=== PATIENT | female | born 1970 | race American Indian/Alaskan Native ===

== ENCOUNTER 2017-08-14 17:18 | Emergency (ER) | payer MEDICAID, OTHER ==
--- NOTE | 2017-08-14 18:05 | EDM.PDOC ---
ED HPI GENERAL MEDICAL PROBLEM - General Stated Complaint: CHEST PAINS,CAME BY AMBULANCE Time Seen by Provider: 08/14/17 17:50 Source of Information: Reports: Patient History Limitations: Reports: No Limitations - History of Present Illness INITIAL COMMENTS - FREE TEXT/NARRATIVE: This 46 yo female patient was sent to the ED by the [facility] due to chest pain and shortness of breath relieved by nitroglycerin. The patient reports she was sitting at her desk (while at work) today when she started to notice some shortness of breath and tightness in her chest. The patient reports her symptoms went from her anterior chest to her posterior chest and down her spine to her left leg. The patient reports she was seen at the [facility] and initially given a nebulizer treatment (symptom relief for about 5 minutes), but the symptoms returned again. The patient reports she was then given an oral nitroglycerin which immediately relieved her symptoms and they have not returned. The patient reports a history of similar episodes in the past. The patient previously saw a presiding steward that told her that she was not having heart problems, but gave her a script for Nitro. 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 Treatments, Nitroglycerin - Related Data Allergies Allergy/AdvReac Type Severity Reaction Status Date / Time No Known Allergies Allergy Verified 02/01/16 22:37 Home Meds: Home Meds Acetaminophen [Tylenol] 650 mg PO Q6HR PRN 08/29/13 [History] Aspirin [Keren Chewable] 81 mg PO DAILY 08/29/13 [History] Losartan [Cozaar] 100 mg PO DAILY 08/29/13 [History] atorvaSTATin [Lipitor] 20 mg PO DAILY 04/27/14 [History] Simethicone 80 mg PO Q6H PRN 11/25/14 [History] metFORMIN [Glucophage] 1,000 mg PO BIDMEALS 11/25/14 [History] Hydrochlorothiazide 25 mg PO DAILY 12/18/14 [History] glyBURIDE [Micronase] 2.5 mg PO DAILY 02/01/16 [History] Past Medical History Cardiovascular History: Reports: High Cholesterol, Hypertension Endocrine/Metabolic History: Reports: Diabetes, Type II - Past Surgical History Other HEENT Surgeries/Procedures: wears glasses Other GI Surgeries/Procedures: last BM today 1100 Social & Family History - Family History Family Medical History: Noncontributory - Tobacco Use Smoking Status *Q: Current Every Day Smoker Years of Tobacco use: 25 Packs/Tins Daily: 0.5 Used Tobacco, but Quit: No Second Hand Smoke Exposure: Yes - Alcohol Use Days Per Week of Alcohol Use: 0 - Recreational Drug Use Recreational Drug Use: No ED ROS GENERAL - Review of Systems Review Of Systems: ROS reveals no pertinent complaints other than HPI. ED EXAM, GENERAL - Physical Exam Exam: See Below Exam Limited By: No Limitations General Appearance: Alert, WD/WN, Mild Distress, Obese Eye Exam: Bilateral Eye: EOMI, Normal Inspection, PERRL Ears: Normal External Exam, Normal Canal, Hearing Grossly Normal, Normal TMs Nose: Normal Inspection, Normal Mucosa, No Blood Throat/Mouth: Normal Inspection, Normal Lips, Normal Teeth, Normal Gums, Normal Oropharynx, Normal Voice, No Airway Compromise Head: Atraumatic, Normocephalic Neck: Normal Inspection, Supple, Non-Tender, Full Range of Motion Respiratory/Chest: No Respiratory Distress, Lungs Clear, Normal Breath Sounds, No Accessory Muscle Use, Chest Non-Tender Cardiovascular: Normal Peripheral Pulses, Regular Rate, Rhythm, No Edema, No Gallop, No JVD, No Murmur, No Rub GI/Abdominal: Normal Bowel Sounds, Soft, Non-Tender, No Organomegaly, No Distention, No Abnormal Bruit, No Mass (Female) Exam: Deferred Rectal (Female) Exam: Deferred Back Exam: Normal Inspection, Full Range of Motion, NT Extremities: Normal Inspection, Normal Range of Motion, Non-Tender, Normal Capillary Refill, No Pedal Edema Neurological: Alert, Oriented, CN II-XII Intact, Normal Cognition, Normal Gait, Normal Reflexes, No Motor/Sensory Deficits Psychiatric: Normal Affect, Normal Mood Skin Exam: Warm, Dry, Intact, Normal Color, No Rash Lymphatic: No Adenopathy Course - Vital Signs Last Recorded V/S: Last Vital Signs Temp 37.1 C 08/14/17 17:21 Pulse 100 08/14/17 17:21 Resp 20 08/14/17 17:21 BP 131/119 H 08/14/17 17:21 Pulse Ox 99 08/14/17 17:21 - Orders/Labs/Meds Orders: Active Orders 24 hr Category Date Time Status EKG Documentation Completion [RC] URGENT Care 08/14/17 17:28 Active Labs: Laboratory Tests 08/14/17 08/14/17 Range/Units 17:37 17:37 WBC 11.2 H (5.0-10.0) 10^3/uL RBC 4.26 (4.2-5.4) 10^6/uL Hgb 12.8 (12.0-16.0) g/dL Hct 38.0 (37.0-47.0) % MCV 89.2 (80-100) fL MCH 30.0 (27.0-34.0) pg MCHC 33.7 (33.0-35.0) g/dL Plt Count 261 (150-450) 10^3/uL Neut % (Auto) 69.3 (42.2-75.2) % Lymph % (Auto) 21.1 (20.5-50.1) % [place] % (Auto) 6.3 (2-8) % Eos % (Auto) 2.8 (1.0-3.0) % Baso % (Auto) 0.5 (0.0-1.0) % Sodium 137 (135-145) mmol/L Potassium 3.5 L (3.6-5.0) mmol/L Chloride 97 L (101-111) mmol/L Carbon Dioxide 25.0 (21.0-31.0) mmol/L Anion Gap 18.5 BUN 9 (7-18) mg/dL Creatinine 0.6 (0.6-1.3) mg/dL Est Cr Clr Drug Dosing TNP Estimated GFR (MDRD) > 60 BUN/Creatinine Ratio 15.00 Glucose 112 H (74-105) mg/dL Calcium 9.6 (8.4-10.2) mg/dl Total Bilirubin 0.6 (0.2-1.0) mg/dL AST 25 (10-42) IU/L ALT 21 (10-60) IU/L Alkaline Phosphatase 110 (42-121) IU/L Troponin I < 0.02 (0.00-0.02) ng/ml Total Protein 7.9 (6.7-8.2) g/dl Albumin 4.2 (3.2-5.5) g/dl Globulin 3.7 Albumin/Globulin Ratio 1.14 Departure - Departure Time of Disposition: 18:29 Disposition: Home, Self-Care 01 Condition: Good Clinical Impression: Angina at rest Instructions: Angina Pectoris, [id number]-oh-Rwus Forms: ED Department Discharge Care Plan Goals: The patient was advised of the examination, lab and EKG results during the visit. The patient was encouraged to continue to monitor her symptoms. If the patient has any additional symptoms or concerns, the patient should follow-up with her primary care provider or return to the emergency department. - My Orders Last 24 Hours: My Active Orders 08/14/17 17:28 EKG Documentation Completion [RC] URGENT - Assessment/Plan Last 24 Hours: My Active Orders 08/14/17 17:28 EKG Documentation Completion [RC] URGENT
[2017-08-14 18:06] LABS: CHLORIDE,CL 97 mmol/L (101-111); SODIUM,NA 137 mmol/L (135-145)
[2017-08-14 18:26] VITALS: BP 131/119
--- NOTE | 2017-08-16 10:08 | EKG ---
08/14/2017- SENA CALVO M - EKG per my reading shows sinus rhythm at the rate of 100, no acute ST changes. MOD /[id number]
== END 2017-08-14 18:39 | disposition home or self-care (01) ==
LOC: DL.ED 17:18
DX: I20.9 Angina pectoris, unspecified (principal); I10 Essential (primary) hypertension; E78.00 Pure hypercholesterolemia, unspecified; E11.9 Type 2 diabetes mellitus without complications; F17.210 Nicotine dependence, cigarettes, uncomplicated; Z79.82 Long term (current) use of aspirin; Z79.899 Other long term (current) drug therapy; Z79.84 Long term (current) use of oral hypoglycemic drugs
CPT/HCPCS: 36415; 80053; 84484; 85025; 93005; 99285

== ENCOUNTER 2019-02-18 12:49 | Emergency (ER) | payer BC, OTHER ==
[2019-02-18 12:59] VITALS: BP 163/89
[2019-02-18] MEDS ORDERED: Diphtheria,Pertussis(Acell),Tetanus Vaccine 0.5 ML SDV IM ONE (12:59)
[2019-02-18] MEDS ORDERED: Bacitracin Oint 1 GM U/D Packet TOP ONE (12:59)
--- NOTE | 2019-02-18 13:27 | EDM.PDOC ---
Scribed by Leilani Horn 02/18/19 1313 for Dru Rowland PA ED HPI GENERAL MEDICAL PROBLEM - General Chief Complaint: Laceration Stated Complaint: CUT FINGER Time Seen by Provider: 02/18/19 13:00 Source of Information: Reports: Patient, RN, RN Notes Reviewed History Limitations: Reports: No Limitations - History of Present Illness INITIAL COMMENTS - FREE TEXT/NARRATIVE: Patient is a 48-year-old female with laceration to the distal 2nd finger. The patient reports she was cutting potatoes with a mandolin slicer. No acute bleeding. Onset: Today Location: Reports: Upper Extremity, Right Severity: Mild Improves with: Reports: None Worsens with: Reports: None Associated Symptoms: Reports: No Other Symptoms - Related Data Allergies Allergy/AdvReac Type Severity Reaction Status Date / Time No Known Allergies Allergy Verified 02/18/19 12:59 Home Meds: Home Meds Acetaminophen [Tylenol] 650 mg PO Q6HR PRN 08/29/13 [History] Aspirin [Keren Chewable] 81 mg PO DAILY 08/29/13 [History] Losartan [Cozaar] 100 mg PO DAILY 08/29/13 [History] atorvaSTATin [Lipitor] 20 mg PO DAILY 04/27/14 [History] Simethicone 80 mg PO Q6H PRN 11/25/14 [History] metFORMIN [Glucophage] 1,000 mg PO BIDMEALS 11/25/14 [History] hydroCHLOROthiazide [Hydrochlorothiazide] 25 mg PO DAILY 12/18/14 [History] Potassium Chloride 10 meq PO DAILY 04/24/18 [History] Saxagliptin HCl [Onglyza] 5 mg PO DAILY 04/24/18 [History] buPROPion HCl [Wellbutrin Xl] 150 mg PO DAILY 04/24/18 [History] Past Medical History Cardiovascular History: Reports: High Cholesterol, Hypertension Respiratory History: Reports: None Gastrointestinal History: Reports: None Genitourinary History: Reports: None 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 Musculoskeletal History: Reports: None Neurological History: Reports: None Psychiatric History: Reports: Anxiety, Depression Endocrine/Metabolic History: Reports: Diabetes, Type II Hematologic History: Reports: None Immunologic History: Reports: None Oncologic (Cancer) History: Reports: None Dermatologic History: Reports: None - Past Surgical History Other HEENT Surgeries/Procedures: wears glasses Social & Family History - Family History Family Medical History: Noncontributory - Caffeine Use Caffeine Use: Reports: Soda ED ROS GENERAL - Review of Systems Review Of Systems: ROS reveals no pertinent complaints other than HPI. ED EXAM, SKIN/RASH Exam: See Below Exam Limited By: No Limitations General Appearance: Alert, WD/WN, No Apparent Distress Eye Exam: Bilateral Eye: EOMI, Normal Inspection, PERRL Ears: Normal External Exam, Normal Canal, Hearing Grossly Normal, Normal TMs Nose: Normal Inspection, Normal Mucosa, No Blood Throat/Mouth: Normal Inspection, Normal Lips, Normal Teeth, Normal Gums, Normal Oropharynx, Normal Voice, No Airway Compromise Head: Atraumatic, Normocephalic Neck: Normal Inspection, Supple, Non-Tender, Full Range of Motion Respiratory/Chest: No Respiratory Distress, Lungs Clear, Normal Breath Sounds, No Accessory Muscle Use, Chest Non-Tender Cardiovascular: Normal Peripheral Pulses, Regular Rate, Rhythm, No Edema, No Gallop, No JVD, No Murmur, No Rub GI/Abdominal: Normal Bowel Sounds, Soft, Non-Tender, No Organomegaly, No Distention, No Abnormal Bruit, No Mass (Female) Exam: Deferred Rectal (Female) Exam: Deferred Back Exam: Normal Inspection, Full Range of Motion, NT Extremities: Normal Inspection, Normal Range of Motion, Non-Tender, No Pedal Edema, Normal Capillary Refill Neurological: Alert, Oriented, CN II-XII Intact, Normal Cognition, Normal Gait, Normal Reflexes, No Motor/Sensory Deficits Psychiatric: Normal Affect, Normal Mood Skin: Other (small avulsion distal index finger. No bleeding. ) Lymphatic: No Adenopathy Course - Vital Signs Last Recorded V/S: Last Vital Signs Temp 36.8 C 02/18/19 12:57 Pulse 105 H 02/18/19 12:57 Resp 16 02/18/19 12:57 BP 163/89 H 02/18/19 12:57 Pulse Ox 100 02/18/19 12:57 - Orders/Labs/Meds Orders: Active Orders 24 hr Category Date Time Status Vaccines to be Administered [RC] PER UNIT ROUTINE Care 02/18/19 12:59 Active Meds: Medications Discontinued Medications Generic Name Dose Route Start Last Admin Trade Name Freq PRN Reason Stop Dose Admin Bacitracin 1 dose 02/18/19 12:59 02/18/19 13:04 Bacitracin Oint 1 Gm TOP 02/18/19 13:00 1 dose ONETIME ONE Administration Diphtheria/Tetanus/Acell Pertussis 0.5 ml 02/18/19 12:59 02/18/19 13:05 Adacel IM 02/18/19 13:00 0.5 ml .ONCE ONE Administration Departure - Departure Time of Disposition: 13:10 Disposition: Home, Self-Care 01 Condition: Good Clinical Impression: Finger laceration Qualifiers: Encounter type: initial encounter Finger: index finger Damage to nail status: without damage Foreign body presence: with foreign body Laterality: right Qualified Code(s): S61.220A - Laceration with foreign body of right index finger without damage to nail, initial encounter - Discharge Information *PRESCRIPTION DRUG MONITORING PROGRAM REVIEWED*: Not Applicable *COPY OF PRESCRIPTION DRUG MONITORING REPORT IN PATIENT JESUS: Not Applicable Instructions: Laceration Care, Adult, [id number] Referrals: Lili Castillo MD [Primary Care Provider] - Forms: ED Department Discharge Care Plan Goals: The patient was advised of the examination results during the visit. The patient should keep the area clean and dry over the next 24 hours. If the patient has any additional symptoms or concerns, the patient should either return to the emergency department or follow-up with her primary care facility. - My Orders Last 24 Hours: My Active Orders 02/18/19 12:59 Vaccines to be Administered [RC] PER UNIT ROUTINE - Assessment/Plan Last 24 Hours: My Active Orders 02/18/19 12:59 Vaccines to be Administered [RC] PER UNIT ROUTINE I have read and agree with the documentation that has been completed regarding this visit. By signing this record, I attest that the documentation was completed in my physical presence and is an accurate record of the encounter.
== END 2019-02-18 13:16 | disposition home or self-care (01) ==
LOC: DL.ED 12:49
DX: S61.220A Laceration with foreign body of right index finger without damage to nail, initial encounter (principal); E78.00 Pure hypercholesterolemia, unspecified; I10 Essential (primary) hypertension; E11.9 Type 2 diabetes mellitus without complications; F41.9 Anxiety disorder, unspecified; F32.9 Major depressive disorder, single episode, unspecified; Z79.84 Long term (current) use of oral hypoglycemic drugs; Z79.899 Other long term (current) drug therapy; Z79.82 Long term (current) use of aspirin; W26.8XXA Contact with other sharp object(s), not elsewhere classified, initial encounter
CPT/HCPCS: 90471; 90715; 96372; 99282

== ENCOUNTER 2019-12-05 17:34 | Emergency (ER) | payer BC, OTHER ==
[2019-12-05 17:46] VITALS: BP 159/75; PULSE 100
[2019-12-05] MEDS ORDERED: Lidocaine 1% 30 ML SDV INJECT ONE (18:28)
--- NOTE | 2019-12-05 19:09 | EDM.PDOC ---
<AmarjitjadeNatasha - Last Filed: 12/05/19 18:25> ED HPI GENERAL MEDICAL PROBLEM - General Chief Complaint: Upper Extremity Injury/Pain Stated Complaint: BOIL IN LEFT ARMPIT Time Seen by Provider: 12/05/19 18:25 Source of Information: Reports: Patient History Limitations: Reports: No Limitations - History of Present Illness INITIAL COMMENTS - FREE TEXT/NARRATIVE: Patient presents to the ED by private vehicle with concerns of an abscess in her left armpit. The patient states that this has been present for approximately 1 month. The patient can typically run the lesion under warm water and the lesion will drain. She states recently it has felt more tender. She describes 5/10, throbbing pain. She denies recorded fever but does state that she felt ill today. Left Arm Pain Score (Numeric/FACES): 6 - Related Data Allergies Allergy/AdvReac Type Severity Reaction Status Date / Time No Known Allergies Allergy Verified 12/05/19 17:44 Home Meds: Home Meds Acetaminophen [Tylenol] 650 mg PO Q6HR PRN 08/29/13 [History] Aspirin [Keren Chewable] 81 mg PO DAILY 08/29/13 [History] Losartan [Cozaar] 100 mg PO DAILY 08/29/13 [History] metFORMIN [Glucophage] 1,000 mg PO BIDMEALS 11/25/14 [History] hydroCHLOROthiazide [Hydrochlorothiazide] 25 mg PO DAILY 12/18/14 [History] Potassium Chloride 10 meq PO DAILY 04/24/18 [History] buPROPion HCl [Wellbutrin Xl] 300 mg PO DAILY 04/24/18 [History] Pioglitazone HCl 45 mg PO DAILY 05/26/19 [History] Simvastatin [Zocor] 10 mg PO DAILY 05/26/19 [History] Past Medical History HEENT History: Reports: Impaired Vision Cardiovascular History: Reports: High Cholesterol, Hypertension Respiratory History: Reports: None Gastrointestinal History: Reports: None Genitourinary History: Reports: None 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 Musculoskeletal History: Reports: None Neurological History: Reports: None Psychiatric History: Reports: Anxiety, Depression Endocrine/Metabolic History: Reports: Diabetes, Type II, Obesity/BMI 30+ Hematologic History: Reports: None Immunologic History: Reports: None Oncologic (Cancer) History: Reports: None Dermatologic History: Reports: None - Infectious Disease History Infectious Disease History: Reports: Chicken Pox - Past Surgical History Other HEENT Surgeries/Procedures: wears glasses GI Surgical History: Reports: Cholecystectomy Social & Family History - Family History Family Medical History: Noncontributory - Tobacco Use Smoking Status *Q: Current Every Day Smoker Years of Tobacco use: 30 Packs/Tins Daily: 0.5 - Caffeine Use Caffeine Use: Reports: Soda - Alcohol Use Days Per Week of Alcohol Use: 1 Number of Drinks Per Day: 1 Total Drinks Per Week: 1 - Recreational Drug Use Recreational Drug Use: No Review of Systems - Review of Systems Review Of Systems: Comprehensive ROS is negative, except as noted in HPI. ED EXAM, GENERAL - Physical Exam Exam: See Below General Appearance: Alert, No Apparent Distress Head: Atraumatic, Normocephalic Respiratory/Chest: No Respiratory Distress, Lungs Clear, Normal Breath Sounds Cardiovascular: Normal Peripheral Pulses, Regular Rate, Rhythm, No Murmur Skin Exam: Warm, Dry, Wound/Incision (wound to left axilla, erythematous base with approximately 1 cm fluctuant abscess actively draining serous fluid) Lymphatic: No Adenopathy ED TRAUMA EXTREMITY PROCEDURES - I&D Site: left axilla Skin Prep: Providone-Iodine (Betadine) Local Anesthesia: Lidocaine: 1% Plain Local Anesthetic Volume: 5cc Area Incised With: 11 Blade Drainage: Bloody, Small Amount Probed to Break Up Loculations: Yes Packed With: 1 in. Iodoform Sterile Dressinx4(s), Other (feminine pad, adhesive tape) Complications: No Progress/Comments: Left axilla area was draped in a sterile fashion. Skin site was cleaned with providone iodine. Abscess was infiltrated with 1% lidocaine, a 1cm incision was made across the abscess, serous to bloody fluid actively drained. The wound was tracked anteriorly approximately 1 cm. No tracts were recognized throughout the rest of the wound bed. The wound was packed with iodoform. It was covered with gauze. The patient tolerated the procedure well. Course - Vital Signs Last Recorded V/S: Last Vital Signs Temp 97.3 F 12/05/19 17:44 Pulse 100 12/05/19 17:44 Resp 18 12/05/19 17:44 BP 159/75 H 12/05/19 17:44 Pulse Ox 100 12/05/19 17:44 - Orders/Labs/Meds Orders: Active Orders 24 hr Category Date Time Status CULTURE WOUND [RM] Stat Lab 12/05/19 18:35 Received Meds: Medications Discontinued Medications Generic Name Dose Route Start Last Admin Trade Name Hayley PRN Reason Stop Dose Admin Lidocaine HCl 30 ml 12/05/19 18:28 12/05/19 18:40 Xylocaine-Mpf 1% INJECT 12/05/19 18:29 30 ml ONETIME ONE Administration Departure - Departure Time of Disposition: 19:14 Disposition: Home, Self-Care 01 Condition: Good Clinical Impression: Abscess - Discharge Information *PRESCRIPTION DRUG MONITORING PROGRAM REVIEWED*: Not Applicable *COPY OF PRESCRIPTION DRUG MONITORING REPORT IN PATIENT JESUS: Not Applicable Instructions: Skin Abscess, Incision and Drainage, Care After Forms: ED Department Discharge Additional Instructions: May take bandage off and allow water over the area in the shower. Keep the area clean and dry otherwise, Avoid applying antiperspirant over the area. Ok if packing gauze falls out on its own from the wound. If it does not fall out , pull the gauze out by Monday or return to the clinic to have the gauze removed. Rx: Keflex. Take this antibiotic as prescribed. Take the full course of antibiotic. Monitor for signs and symptoms of infection including foul smelling odor from the wound, fever. Sepsis Event Note - Evaluation Sepsis Screening Result: No Definite Risk - Focused Exam Vital Signs: Vital Signs Temp Pulse Resp BP Pulse Ox 12/05/19 17:44 97.3 F 100 18 159/75 H 100 Date Exam was Performed: 12/05/19 Time Exam was Performed: 18:25 <Javi Duckworth - Last Filed: 12/05/19 19:49> Course - Re-Assessments/Exams Free Text/Narrative Re-Assessment/Exam: 12/05/19 19:49 I personally performed or re-performed the physical examination and medical decision making. I have verified all student documentation or findings, including history, physical exam and/or medical decision making. Sepsis Event Note - Focused Exam Date Exam was Performed: 12/05/19 Time Exam was Performed: 19:49
== END 2019-12-05 19:21 | disposition home or self-care (01) ==
LOC: DL.ED 17:34
DX: L02.412 Cutaneous abscess of left axilla (principal)
CPT/HCPCS: 10061; 87070; 87077; 99283; J2001; 10060

== ENCOUNTER 2019-12-06 20:26 | Emergency (ER) | payer BC, OTHER | END 2019-12-06 21:23 | disposition left against medical advice (07) | LOC: DL.ED 20:26 | DX: Z53.21 Procedure and treatment not carried out due to patient leaving prior to being seen by health care provider (principal) ==

== ENCOUNTER 2019-12-07 16:33 | Emergency (ER) | payer BC, OTHER ==
[2019-12-07 16:48] VITALS: BP 144/79; PULSE 100
--- NOTE | 2019-12-07 16:55 | EDM.PDOC ---
ED HPI GENERAL MEDICAL PROBLEM - General Chief Complaint: Skin Complaint Stated Complaint: LEFT SHOULDER AREA INFECTED. Time Seen by Provider: 12/07/19 16:45 Source of Information: Reports: Patient History Limitations: Reports: No Limitations - History of Present Illness INITIAL COMMENTS - FREE TEXT/NARRATIVE: This 48 yo female patient reports to the ED with increased pain in her left axilla. The patient had an abscess incised and drained on 12/05/19. During that visit, the wound was packed and the patient was started on keflex. The patient reports she has been taking the Keflex as prescribed, but has continued to experience increased pain to the left axilla. The patient reports she has been changing the dressings, but has noticed continued drainage. The patient is supposed to have a follow-up appointment on Monday with her primary care facility to remove the packing. Onset: Gradual Duration: Day(s):, Constant Location: Reports: Upper Extremity, Left Quality: Reports: Other Severity: Moderate Improves with: Reports: None Worsens with: Reports: None Context: Reports: Other Associated Symptoms: Reports: No Other Symptoms Left Axillary Pain Score (Numeric/FACES): 8 - Related Data Allergies Allergy/AdvReac Type Severity Reaction Status Date / Time No Known Allergies Allergy Verified 12/07/19 16:43 Home Meds: Home Meds Acetaminophen [Tylenol] 650 mg PO Q6HR PRN 08/29/13 [History] Aspirin [Keren Chewable] 81 mg PO DAILY 08/29/13 [History] Losartan [Cozaar] 100 mg PO DAILY 08/29/13 [History] metFORMIN [Glucophage] 1,000 mg PO BIDMEALS 11/25/14 [History] hydroCHLOROthiazide [Hydrochlorothiazide] 25 mg PO DAILY 12/18/14 [History] Potassium Chloride 10 meq PO DAILY 04/24/18 [History] buPROPion HCl [Wellbutrin Xl] 300 mg PO DAILY 04/24/18 [History] Pioglitazone HCl 45 mg PO DAILY 05/26/19 [History] Simvastatin [Zocor] 10 mg PO DAILY 05/26/19 [History] Past Medical History HEENT History: Reports: Impaired Vision Cardiovascular History: Reports: High Cholesterol, Hypertension Respiratory History: Reports: None Gastrointestinal History: Reports: None Genitourinary History: Reports: None 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 Musculoskeletal History: Reports: None Neurological History: Reports: None Psychiatric History: Reports: Anxiety, Depression Endocrine/Metabolic History: Reports: Diabetes, Type II, Obesity/BMI 30+ Hematologic History: Reports: None Immunologic History: Reports: None Oncologic (Cancer) History: Reports: None Dermatologic History: Reports: None - Infectious Disease History Infectious Disease History: Reports: None - Past Surgical History Other HEENT Surgeries/Procedures: wears glasses GI Surgical History: Reports: Cholecystectomy Social & Family History - Family History Family Medical History: Noncontributory - Tobacco Use Smoking Status *Q: Never Smoker Second Hand Smoke Exposure: No - Caffeine Use Caffeine Use: Reports: Soda - Recreational Drug Use Recreational Drug Use: No ED ROS GENERAL - Review of Systems Review Of Systems: Comprehensive ROS is negative, except as noted in HPI. ED EXAM, SKIN/RASH Exam: See Below Exam Limited By: No Limitations General Appearance: Alert, WD/WN, Mild Distress Eye Exam: Bilateral Eye: EOMI Ears: Normal External Exam Nose: Normal Inspection, No Blood Throat/Mouth: Normal Lips, Normal Teeth Respiratory/Chest: No Respiratory Distress, Lungs Clear, Normal Breath Sounds, No Accessory Muscle Use Cardiovascular: Normal Peripheral Pulses, Regular Rate, Rhythm (Female) Exam: Deferred Rectal (Female) Exam: Deferred Extremities: Arm Pain (left axilla pain (abscess was incised and drained with packing). The wound appears to be healing well with a scant amount of drainage. The patient is tender to palpation of the area, but there does not appear to be any additional areas of fluctuance. ) Course - Vital Signs Last Recorded V/S: Last Vital Signs Temp 36.6 C 12/07/19 16:44 Pulse 100 12/07/19 16:44 Resp 16 12/07/19 16:44 BP 144/79 H 12/07/19 16:44 Pulse Ox 100 12/07/19 16:44 Departure - Departure Time of Disposition: 16:52 Disposition: Home, Self-Care 01 Condition: Fair Clinical Impression: Wound check, abscess - Discharge Information *PRESCRIPTION DRUG MONITORING PROGRAM REVIEWED*: Not Applicable *COPY OF PRESCRIPTION DRUG MONITORING REPORT IN PATIENT JESUS: Not Applicable Forms: ED Department Discharge Care Plan Goals: The patient was advised of the examination and previous lab culture results during the visit. The patient was encouraged to continue to take the antibiotics as prescribed. The patient should follow-up with her primary care facility as recommended on Monday. If the patient has any additional symptoms or concerns, the patient should either return to the emergency department or visit her primary care facility. Sepsis Event Note - Evaluation Sepsis Screening Result: No Definite Risk - Focused Exam Vital Signs: Vital Signs Temp Pulse Resp BP Pulse Ox 12/07/19 16:44 36.6 C 100 16 144/79 H 100 Date Exam was Performed: 12/07/19 Time Exam was Performed: 17:04
== END 2019-12-07 17:00 | disposition home or self-care (01) ==
LOC: DL.ED 16:33
DX: Z48.01 Encounter for change or removal of surgical wound dressing (principal); E78.00 Pure hypercholesterolemia, unspecified; I10 Essential (primary) hypertension; F41.9 Anxiety disorder, unspecified; F32.9 Major depressive disorder, single episode, unspecified; E11.9 Type 2 diabetes mellitus without complications; E66.9 Obesity, unspecified; Z79.82 Long term (current) use of aspirin; Z79.84 Long term (current) use of oral hypoglycemic drugs; Z79.899 Other long term (current) drug therapy; Z68.41 Body mass index [BMI] 40.0-44.9, adult
CPT/HCPCS: 99282

== ENCOUNTER 2020-03-30 05:50 | Day surgery (SDC) | payer BC, OTHER ==
[2020-03-30] MEDS ORDERED: Midazolam 1 MG/ML 2 ML SDV IV ONE ×7 (05:51→07:31)
[2020-03-30] MEDS ORDERED: fentaNYL 100 MCG/2 ML SDV IV ONE ×7 (05:51→07:46)
[2020-03-30] MEDS ORDERED: Dextrose 5%-0.45% NaCl 1,000 ML IV SCH (06:00)
[2020-03-30] MEDS ORDERED: Sodium Chloride 0.9% 10 ML Syringe FLUSH PRN (06:00)
[2020-03-30] MEDS ORDERED: Midazolam 1 MG/ML 2 ML SDV ONE (06:15)
[2020-03-30] MEDS ORDERED: fentaNYL 100 MCG/2 ML SDV ONE (06:16)
--- NOTE | 2020-03-30 08:58 | OR ---
DATE: 03/30/2020 PROCEDURE: Total colonoscopy. INSTRUMENT USED: PCF-H190DL Olympus video colonoscope. PREMEDICATIONS: Fentanyl 200 mcg intravenous, Versed 4 mg intravenous. Nasal O2 cannula. The procedure was done under pulse oximetry, BP recording, and salvager helper. INDICATION: Screening colonoscopic examination is done for detection of any polypoid lesions and removal, endoscopic hemostasis therapy if needed. DESCRIPTION OF PROCEDURE: Initial rectal exam was unremarkable. Rigid anoscopy was normal. The colonoscope was passed with ease. Numerous scattered diverticula were noted in the distal left colon. The scope was passed up to the area of cecum, photographs were taken. The colon was found to be tortuous and redundant, technically difficult exam, prolonged. No bleeding was noted from any of the visualized areas at the commencement of the examination. There was large amount of liquid and some semi-liquid fecal material that had to be aspirated. Bowel preparation, [place] scale 2 in all the regions, total score 6. No stricture. No vascular ectasia. No large isolated ulcerations seen. No evidence of diffuse inflammatory bowel disease in the form of friability, contact bleeding, or ulcerations. No polyp or tumor mass identified. Probing the proximal sides of folds and flexures using adequate distention and clearing of the stool material, withdrawal of the scope was made. Cecum to rectum time over 6 minutes. No bleeding was noted from any of the visualized areas at the completion of the examination. IMPRESSION: Diverticulosis. The patient tolerated the procedure well. [facility] /[id number]
--- NOTE | 2020-03-30 10:41 | LETTER ---
03/30/2020 Ekaterina Lizarraga, SHERIN [facility] [address] [place] [address] RE: SENA CALVO : 1970 Dear Ms. Lizarraga: MsMarko Ghazal Blanca had colonoscopic examination done this morning and she tolerated the procedure well. I herewith send a copy of the endoscopy note and photographs for your review. Thank you. Sincerely, [facility] /[id number]
[2020-03-30 10:42] VITALS: PULSE 76
[2020-03-30 10:43] VITALS: BP 132/87
== END 2020-03-30 09:55 | disposition home or self-care (01) ==
LOC: DL.ENDO 05:50
PROVIDERS: ATTEND Internal Medicine Gastroenterology
DX: Z12.11 Encounter for screening for malignant neoplasm of colon (principal); K57.30 Diverticulosis of large intestine without perforation or abscess without bleeding; E78.5 Hyperlipidemia, unspecified; F17.210 Nicotine dependence, cigarettes, uncomplicated; I10 Essential (primary) hypertension; E11.9 Type 2 diabetes mellitus without complications; E66.09 Other obesity due to excess calories; F41.1 Generalized anxiety disorder; G47.00 Insomnia, unspecified; Z79.82 Long term (current) use of aspirin; Z80.0 Family history of malignant neoplasm of digestive organs; Z90.49 Acquired absence of other specified parts of digestive tract; Z68.42 Body mass index [BMI] 45.0-49.9, adult; Z98.51 Tubal ligation status
CPT/HCPCS: 45378; 81025; J2250; J3010; J7042

== ENCOUNTER 2021-11-13 10:22 | Emergency (ER) | payer BC, OTHER ==
[2021-11-13 10:50] VITALS: BP 121/65; PULSE 90
[2021-11-13 11:12] LABS: ANION GAP 10.9 mEq/L (7-13); CHLORIDE,CL 104 mmol/L (98-107); SODIUM,NA 140 mmol/L (136-145)
[2021-11-13 11:24] LABS: CORONAVIRUS COVID-19 NAA NEGATIVE (NEGATIVE); RESPIRATORY SYNCYTIAL VIR NAA NEGATIVE (NEGATIVE)
== END 2021-11-13 12:01 | disposition home or self-care (01) ==
LOC: DL.ED 10:22
DX: R07.89 Other chest pain (principal); E78.00 Pure hypercholesterolemia, unspecified; I10 Essential (primary) hypertension; E11.9 Type 2 diabetes mellitus without complications; E66.9 Obesity, unspecified; Z68.42 Body mass index [BMI] 45.0-49.9, adult; Z79.82 Long term (current) use of aspirin; Z79.899 Other long term (current) drug therapy; Z79.84 Long term (current) use of oral hypoglycemic drugs; Z20.822 Contact with and (suspected) exposure to COVID-19
CPT/HCPCS: 0241U; 36415; 71045; 80053; 82150; 83605; 83690; 83735; 83880; 84443; 84484; 85025; 86140; 93005; 99285

== ENCOUNTER 2022-02-04 06:22 | Day surgery (SDC) | payer BC, MEDICAID, OTHER ==
[~2022-02-04 06:22] MED LIST: Dextrose 5%-0.45% NaCl 1,000 ML IV SCH; Midazolam 1 MG/ML 2 ML SDV ONE; Sodium Chloride 0.9% 10 ML Syringe FLUSH PRN; fentaNYL 100 MCG/2 ML SDV ONE
[2022-02-04] MEDS ORDERED: fentaNYL 100 MCG/2 ML SDV IV ONE ×3 (06:23→07:16)
[2022-02-04] MEDS ORDERED: Midazolam 1 MG/ML 2 ML SDV IV ONE ×3 (06:23→07:17)
[2022-02-04] MEDS ORDERED: Sodium Chloride 0.9% 10 ML Syringe FLUSH SCH (09:00)
[2022-02-04 09:24] VITALS: BP 80/50; PULSE 80
== END 2022-02-04 09:30 | disposition home or self-care (01) ==
LOC: DL.ENDO 06:22
PROVIDERS: ATTEND Internal Medicine Gastroenterology
DX: R10.13 Epigastric pain (principal); R11.2 Nausea with vomiting, unspecified; E66.09 Other obesity due to excess calories; I10 Essential (primary) hypertension; E78.5 Hyperlipidemia, unspecified; F17.200 Nicotine dependence, unspecified, uncomplicated; E11.9 Type 2 diabetes mellitus without complications; F41.1 Generalized anxiety disorder; G47.00 Insomnia, unspecified; K57.30 Diverticulosis of large intestine without perforation or abscess without bleeding; H93.19 Tinnitus, unspecified ear; Z68.42 Body mass index [BMI] 45.0-49.9, adult; Z98.51 Tubal ligation status; Z90.49 Acquired absence of other specified parts of digestive tract
CPT/HCPCS: 87077; J2250; J3010; J7042

== ENCOUNTER 2023-07-09 21:44 | Emergency (ER) | payer MEDICAID ==
[2023-07-09 22:15] LABS: BASOPHILS PERCENT AUTO 0.6 % (0.0-1.0); EOSINOPHILS PERCENT AUTO 2.9 % (1.0-3.0); HEMATOCRIT 36.5 % (37.0-47.0); HEMOGLOBIN 12.7 g/dL (12.0-16.0); LYMPHOCYTES PERCENT AUTO 29.5 % (20.5-50.1); MEAN CORPUSCULAR HEMOGLOBIN 31.1 pg (27.0-34.0); MEAN CORPUSCULAR HGB CONC 34.8 g/dL (33.0-35.0); MEAN CORPUSCULAR VOLUME 89.5 fL (80-100); MONOCYTES PERCENT AUTO 7.1 % (2-8); NEUTROPHILS PERCENT AUTO 59.9 % (42.2-75.2); PLATELET COUNT,PLT 272 10^3/uL (150-450); RED BLOOD CELL COUNT 4.08 10^6/uL (4.2-5.4); WHITE BLOOD CELL COUNT,WBC 8.8 10^3/uL (5.0-10.0)
[2023-07-09 22:18] VITALS: BP 153/90; PULSE 85
[2023-07-09 22:32] LABS: ALBUMIN 3.8 g/dL (3.4-5.0); ANION GAP 11.9 mEq/L (7-13); BILIRUBIN TOTAL 0.6 mg/dL (0.2-1.0); BUN/CREATININE RATIO 17.9 (No establ ref range); CALCIUM 9.4 mg/dL (8.5-10.1); CREATININE 1.12 mg/dL (0.55-1.02); EST CRCL DRUG DOSING (CG) 41.72 mL/min; POTASSIUM,K 2.9 mmol/L (3.5-5.1); PROTEIN TOTAL,TP 7.6 g/dL (6.4-8.2)
[2023-07-09] MEDS ORDERED: Potassium Chloride 10 MEQ Tab.ER PO ONE (23:09)
== END 2023-07-09 23:45 | disposition home or self-care (01) ==
LOC: DL.ED 21:44
DX: E87.6 Hypokalemia (principal); E66.9 Obesity, unspecified; E11.9 Type 2 diabetes mellitus without complications; E78.00 Pure hypercholesterolemia, unspecified; I10 Essential (primary) hypertension; Z86.16 Personal history of COVID-19; Z79.84 Long term (current) use of oral hypoglycemic drugs; Z79.82 Long term (current) use of aspirin; Z79.899 Other long term (current) drug therapy
CPT/HCPCS: 36415; 80053; 82947; 83735; 85025; 93005; 93010; 99283; 99284; A9270

== ENCOUNTER 2023-10-15 13:43 | Emergency (ER) | payer MEDICAID ==
[2023-10-15 14:10] VITALS: BP 141/93; PULSE 100
== END 2023-10-15 16:21 | disposition home or self-care (01) ==
LOC: DL.ED 13:43
DX: S61.412A Laceration without foreign body of left hand, initial encounter (principal); I10 Essential (primary) hypertension; E78.00 Pure hypercholesterolemia, unspecified; E11.9 Type 2 diabetes mellitus without complications; E66.9 Obesity, unspecified; Z86.16 Personal history of COVID-19; Z79.82 Long term (current) use of aspirin; Z79.84 Long term (current) use of oral hypoglycemic drugs; Z79.899 Other long term (current) drug therapy; Z68.37 Body mass index [BMI] 37.0-37.9, adult; W26.0XXA Contact with knife, initial encounter
CPT/HCPCS: 12001; 99282; 99283

== ENCOUNTER 2023-10-17 09:43 | Emergency (ER) | payer MEDICAID | END 2023-10-17 10:49 | LOC: DL.ED 09:43 | DX: Z53.21 Procedure and treatment not carried out due to patient leaving prior to being seen by health care provider (principal) ==

== ENCOUNTER 2024-03-03 20:07 | Emergency (ER) | payer MEDICAID ==
[2024-03-03 20:20] VITALS: BP 132/86; PULSE 84
[2024-03-03] MEDS: Cyclobenzaprine 10 MG Tab PO ONE (20:30)
[2024-03-03] MEDS: Take Home: Cyclobenzaprine 10 MG Tab, 4 Tab Pack PO ONE (20:33)
[2024-03-03] MEDS: Ketorolac 30 MG/ML SDV IM ONE (20:35)
== END 2024-03-03 20:51 | disposition home or self-care (01) ==
LOC: DL.ED 20:07
DX: M46.1 Sacroiliitis, not elsewhere classified (principal); M62.830 Muscle spasm of back; I10 Essential (primary) hypertension; E78.00 Pure hypercholesterolemia, unspecified; E11.9 Type 2 diabetes mellitus without complications; E66.9 Obesity, unspecified; Z90.49 Acquired absence of other specified parts of digestive tract; Z86.16 Personal history of COVID-19; Z79.82 Long term (current) use of aspirin; Z79.899 Other long term (current) drug therapy; Z79.84 Long term (current) use of oral hypoglycemic drugs; Z68.38 Body mass index [BMI] 38.0-38.9, adult; X50.1XXA Overexertion from prolonged static or awkward postures, initial encounter
CPT/HCPCS: 96372; 99283; A9270; J1885

== ENCOUNTER 2024-03-04 09:49 | Emergency (ER) | payer MEDICAID ==
[2024-03-04 10:03] VITALS: BP 121/60; PULSE 98
[2024-03-04] MEDS: Dexamethasone 4 MG/ML SDV IM ONE (10:21)
== END 2024-03-04 11:03 | disposition home or self-care (01) ==
LOC: DL.ED 09:49
DX: M47.14 Other spondylosis with myelopathy, thoracic region (principal); I10 Essential (primary) hypertension; E78.00 Pure hypercholesterolemia, unspecified; E11.9 Type 2 diabetes mellitus without complications; Z79.899 Other long term (current) drug therapy; Z79.82 Long term (current) use of aspirin; Z79.85 Long-term (current) use of injectable non-insulin antidiabetic drugs; Z79.84 Long term (current) use of oral hypoglycemic drugs; Z86.16 Personal history of COVID-19; Z90.49 Acquired absence of other specified parts of digestive tract
CPT/HCPCS: 72070; 96372; 99284; J1100; J3360

== ENCOUNTER 2024-04-29 19:03 | Emergency (ER) | payer MEDICAID | END 2024-04-29 19:27 | disposition left against medical advice (07) | LOC: DL.ED 19:03 | DX: Z53.21 Procedure and treatment not carried out due to patient leaving prior to being seen by health care provider (principal) ==

== ENCOUNTER 2024-06-21 08:45 | Emergency (ER) | payer MEDICAID ==
[2024-06-21] MEDS: Aspirin 81 MG Tab.Chew PO ONE (09:10)
[2024-06-21 09:23] LABS: BASOPHILS PERCENT AUTO 0.5 % (0.0-1.0); EOSINOPHILS PERCENT AUTO 3.6 % (1.0-3.0); HEMATOCRIT 34.9 % (37.0-47.0); HEMOGLOBIN 11.1 g/dL (12.0-16.0); LYMPHOCYTES PERCENT AUTO 23.2 % (20.5-50.1); MEAN CORPUSCULAR HEMOGLOBIN 27.6 pg (27.0-34.0); MEAN CORPUSCULAR HGB CONC 31.8 g/dL (33.0-35.0); MEAN CORPUSCULAR VOLUME 86.8 fL (80-100); MONOCYTES PERCENT AUTO 5.8 % (2-8); NEUTROPHILS PERCENT AUTO 66.9 % (42.2-75.2); PLATELET COUNT,PLT 266 10^3/uL (150-450); RED BLOOD CELL COUNT 4.02 10^6/uL (4.2-5.4); WHITE BLOOD CELL COUNT,WBC 8.2 10^3/uL (5.0-10.0)
[2024-06-21 09:28] LABS: APPEARANCE,URINE CLEAR (CLEAR); BILIRUBIN,URINE NEGATIVE (NEGATIVE); COLOR,URINE YELLOW (YELLOW); GLUCOSE,URINE 250 (NEGATIVE); KETONES,URINE NEGATIVE (NEGATIVE); LEUKOCYTE ESTERASE,URINE SMALL (NEGATIVE); NITRITE,URINE NEGATIVE (NEGATIVE); OCCULT BLOOD,URINE NEGATIVE (NEGATIVE); PROTEIN,URINE 30 (NEGATIVE); UROBILINOGEN,URINE 0.2 mg/dL (0.2-1.0)
[2024-06-21 09:41] LABS: BACTERIA,URINE MODERATE /HPF (0-FEW/HPF); EPITHELIAL CELLS,URINE MODERATE /HPF (NOT SEEN); RBC,URINE 0-5 /HPF (0-5)
[2024-06-21] MEDS: cefTRIAXone 1 GM Vial IM ONE (09:45)
[2024-06-21 09:46] LABS: A/G RATIO 0.87; ALBUMIN 3.3 g/dL (3.4-5.0); ANION GAP 11.3 mEq/L (7-13); BILIRUBIN TOTAL 0.5 mg/dL (0.2-1.0); BUN/CREATININE RATIO 15.7 (No establ ref range); CALCIUM 9.1 mg/dL (8.5-10.1); CREATININE 0.83 mg/dL (0.55-1.02); EST CRCL DRUG DOSING (CG) 55.66 mL/min; MAGNESIUM 2.1 mg/dL (1.8-2.4); POTASSIUM,K 3.3 mmol/L (3.5-5.1); PROTEIN TOTAL,TP 7.1 g/dL (6.4-8.2)
[2024-06-21] MEDS: cefTRIAXone 1 GM Vial IVPUSH ONE (09:49)
[2024-06-21] MEDS: Potassium Chloride 10 MEQ Tab.ER PO ONE (09:59)
[2024-06-21 11:52] VITALS: BP 128/77; PULSE 67
[2024-06-21] MEDS: Acetaminophen 325 MG Tab PO ONE (11:55)
== END 2024-06-21 11:58 | disposition home or self-care (01) ==
LOC: DL.ED 08:45
DX: R07.9 Chest pain, unspecified (principal); N39.0 Urinary tract infection, site not specified; E87.6 Hypokalemia; E78.00 Pure hypercholesterolemia, unspecified; I10 Essential (primary) hypertension; E11.9 Type 2 diabetes mellitus without complications; E66.9 Obesity, unspecified; Z68.35 Body mass index [BMI] 35.0-35.9, adult; Z86.16 Personal history of COVID-19; Z90.49 Acquired absence of other specified parts of digestive tract
CPT/HCPCS: 36415; 71046; 80053; 81001; 83690; 83735; 84484; 85025; 85379; 87086; 87635; 87804; 93005; 96372; 99285; A9270; J0696; U0002

== ENCOUNTER 2025-01-09 21:48 | Emergency (ER) | payer MEDICAID ==
[2025-01-09] MEDS: Bupivacaine 0.25%/EPINEPHrine 1:200,000 30 ML SDV INFILT ONE (22:37)
[2025-01-09] MEDS: Bupivacaine 0.5% 30 ML SDV INFILT ONE (22:37)
[2025-01-09 23:02] VITALS: BP 145/74; PULSE 85
== END 2025-01-09 23:07 | disposition home or self-care (01) ==
LOC: DL.ED 21:48
DX: M62.830 Muscle spasm of back (principal); M25.561 Pain in right knee; I10 Essential (primary) hypertension; E11.9 Type 2 diabetes mellitus without complications; E66.9 Obesity, unspecified; Z79.899 Other long term (current) drug therapy; Z79.82 Long term (current) use of aspirin; Z79.84 Long term (current) use of oral hypoglycemic drugs; Z86.16 Personal history of COVID-19; Z90.49 Acquired absence of other specified parts of digestive tract; Z68.33 Body mass index [BMI] 33.0-33.9, adult
CPT/HCPCS: 20552; 99283; 99283-25; J0665

== ENCOUNTER 2025-04-29 17:53 | Emergency (ER) | payer MEDICAID ==
[2025-04-29] MEDS ORDERED: Sodium Chloride 0.9% 10 ML Syringe FLUSH PRN (18:36)
[2025-04-29 18:47] LABS: BASOPHILS PERCENT AUTO 0.3 % (0.0-1.0); EOSINOPHILS PERCENT AUTO 0.7 % (1.0-3.0); LYMPHOCYTES PERCENT AUTO 10.5 % (20.5-50.1); MONOCYTES PERCENT AUTO 5.2 % (2-8); NEUTROPHILS PERCENT AUTO 83.3 % (42.2-75.2); PLATELET COUNT,PLT 174 10^3/uL (150-450); RED BLOOD CELL COUNT 4.43 10^6/uL (4.2-5.4); WHITE BLOOD CELL COUNT,WBC 7.6 10^3/uL (5.0-10.0)
[2025-04-29 18:52] LABS: HCG QUALITATIVE,SERUM NEGATIVE (NEGATIVE)
[2025-04-29 19:01] LABS: A/G RATIO 1.0; ALANINE AMINOTRANSFERASE,ALT 19 U/L (14-59); ASPARTATE AMNIOTRANSFERASE,AST 19 U/L (15-37); BILIRUBIN TOTAL 0.6 mg/dL (0.2-1.0); BLOOD UREA NITROGEN,BUN 13 mg/dL (7-18); CARBON DIOXIDE,CO2 26 mmol/L (21-32); CHLORIDE,CL 103 mmol/L (98-107); CREATININE 0.87 mg/dL (0.55-1.02); EST CRCL DRUG DOSING (CG) 52.48 mL/min; GLUCOSE RANDOM 118 mg/dL (70-99); POTASSIUM,K 3.2 mmol/L (3.5-5.1); PROTEIN TOTAL,TP 7.3 g/dL (6.4-8.2); SODIUM,NA 140 mmol/L (136-145)
[2025-04-29 19:02] LABS: ESTIMATED GFR 79 mL/min (>=60)
[2025-04-29 19:04] LABS: LACTIC ACID 0.9 mmol/L (0.4-2.0)
[2025-04-29 19:08] VITALS: BP 126/54; PULSE 86
[2025-04-29 19:23] LABS: INR 0.9 (0.9-1.2); PTT,PARTIAL THROMBOPLSTIN TIME 27.3 SEC (22.0-34.0)
[2025-04-29] MEDS: Iopamidol 612 MG/ML 100 ML Bottle IVPUSH ONE (19:24)
[2025-04-29] MEDS: Potassium Chloride 10 MEQ Tab.ER PO ONE (19:43)
[2025-04-29] MEDS ORDERED: Take Home: Acetaminophen/HYDROcodone 325-5 MG, 5 Tab Pack PO ONE (21:51)
[2025-04-29] MEDS ORDERED: Take Home: Ondansetron 4 MG Tab.DIS, 5 Tab Pack PO ONE (21:51)
== END 2025-04-29 22:24 | disposition home or self-care (01) ==
LOC: DL.ED 17:53
DX: K52.9 Noninfective gastroenteritis and colitis, unspecified (principal); I10 Essential (primary) hypertension; E78.00 Pure hypercholesterolemia, unspecified; E11.9 Type 2 diabetes mellitus without complications; Z79.82 Long term (current) use of aspirin; Z79.899 Other long term (current) drug therapy; Z79.84 Long term (current) use of oral hypoglycemic drugs; Z90.49 Acquired absence of other specified parts of digestive tract
CPT/HCPCS: 36415; 74177; 80053; 83605; 83690; 84703; 85025; 85610; 85730; 86140; 87040; 87045; 87899; 99284; A9270; Q9967; 87046

== ENCOUNTER 2025-07-18 01:22 | Emergency (ER) | payer MEDICAID, OTHER ==
[2025-07-18] MEDS ORDERED: Sodium Chloride 0.9% 10 ML Syringe FLUSH PRN (01:49)
[2025-07-18 01:56] LABS: BASOPHILS PERCENT AUTO 0.4 % (0.0-1.0); EOSINOPHILS PERCENT AUTO 2.1 % (1.0-3.0); LYMPHOCYTES PERCENT AUTO 18.0 % (20.5-50.1); MONOCYTES PERCENT AUTO 8.3 % (2-8); NEUTROPHILS PERCENT AUTO 71.2 % (42.2-75.2); PLATELET COUNT,PLT 233 10^3/uL (150-450); RED BLOOD CELL COUNT 4.15 10^6/uL (4.2-5.4); WHITE BLOOD CELL COUNT,WBC 10.4 10^3/uL (5.0-10.0)
[2025-07-18 02:07] LABS: A/G RATIO 1.0; ALANINE AMINOTRANSFERASE,ALT 18.0 U/L (14-59); ASPARTATE AMNIOTRANSFERASE,AST 16.0 U/L (15-37); BILIRUBIN TOTAL 0.7 mg/dL (0.2-1.0); BLOOD UREA NITROGEN,BUN 11.0 mg/dL (7-18); CARBON DIOXIDE,CO2 30.0 mmol/L (21-32); CHLORIDE,CL 105.0 mmol/L (98-107); CREATININE 0.73 mg/dL (0.55-1.02); EST CRCL DRUG DOSING (CG) 62.54 mL/min; GLUCOSE RANDOM 143.0 mg/dL (70-99); POTASSIUM,K 3.0 mmol/L (3.5-5.1); PROTEIN TOTAL,TP 7.7 g/dL (6.4-8.2); SODIUM,NA 146.0 mmol/L (136-145)
[2025-07-18] MEDS: Benzocaine/Cetylpyridinium/Menthol Lozenge MUCMEM ONE (02:11)
[2025-07-18] MEDS: methylPREDNISolone Sodium Succinate 125 MG/2 ML SDV IVPUSH ONE (02:11)
[2025-07-18 02:12] LABS: ESTIMATED GFR 97.0 mL/min (>=60)
[2025-07-18] MEDS: Potassium Chloride 10 MEQ Tab.ER PO ONE (02:32)
[2025-07-18 03:46] VITALS: BP 135/68; PULSE 73
== END 2025-07-18 03:50 | disposition home or self-care (01) ==
LOC: DL.ED 01:22
DX: J45.21 Mild intermittent asthma with (acute) exacerbation (principal); I10 Essential (primary) hypertension; E78.00 Pure hypercholesterolemia, unspecified; E11.9 Type 2 diabetes mellitus without complications; E66.9 Obesity, unspecified; Z79.82 Long term (current) use of aspirin; Z79.899 Other long term (current) drug therapy; Z79.84 Long term (current) use of oral hypoglycemic drugs; Z68.33 Body mass index [BMI] 33.0-33.9, adult
CPT/HCPCS: 36415; 71046; 80053; 85025; 96374; 99285; A9270; J2919